=== PATIENT | male | born 1965 | race American Indian/Alaskan Native ===

== ENCOUNTER 2019-07-25 11:46 | Emergency (ER) | payer MEDICARE, OTHER ==
[2019-07-25 12:42] LABS: Basophils # (Auto) 0.1 K/mm3 (0.0-0.1); Basophils % (Auto) 0.7 % (0.0-1.8); Eosinophils # (Auto) 0.3 K/mm3 (0.0-0.4); Eosinophils % (Auto) 3.7 % (0.0-4.3); Hematocrit 31.3 % (35.5-45.6); Hemoglobin 9.9 gm/dl (11.8-15.2); Lymphocytes % (Auto) 28.9 % (13.4-35.0); Mean Corpuscular HGB Conc 32 % (32-34); Mean Corpuscular Volume 89 fl (84-94); Monocytes # (Auto) 0.5 K/mm3 (0.0-0.8); Monocytes % (Auto) 7.8 % (0.0-7.3); Platelet Count 172 K/mm3 (140-440); Red Blood Count 3.53 M/mm3 (3.65-5.03); Red Cell Distribution Width 15.7 % (13.2-15.2)
[2019-07-25 12:50] LABS: Albumin 3.6 g/dL (3.9-5); Calcium 8.6 mg/dL (8.4-10.2)
[2019-07-25 12:57] LABS: INR 1.02 (0.87-1.13)
--- NOTE | 2019-07-25 13:41 | Emergency Department Report ---
<MANUELDEVANTE - Last Filed: 07/25/19 13:29> ED GI Bleed HPI - General Chief complaint: GI Bleed Stated complaint: GI BLEED Time Seen by Provider: 07/25/19 13:10 Source: patient Mode of arrival: Ambulatory Limitations: No Limitations - History of Present Illness Severity scale (0 -10): 0 - Related Data Home Medications Medication Instructions Recorded Confirmed Last Taken Calcitriol [Rocaltrol] 0.25 mcg PO DAILY 09/28/14 04/10/15 04/09/15 Carvedilol Phosphate [Coreg CR] 80 mg PO QDAY 09/28/14 04/10/15 04/10/15 Cinacalcet [Sensipar] 30 mg PO QDAY 09/28/14 04/10/15 04/09/15 Hydralazine HCl [Apresoline TAB] 50 mg PO TID 09/28/14 04/10/15 04/10/15 Omeprazole [PriLOSEC] 20 mg PO BID 09/28/14 04/10/15 04/09/15 Simvastatin 20 mg PO QDAY 09/28/14 04/10/15 04/09/15 Tacrolimus [Prograf] 3 mg PO Q12H 09/28/14 04/10/15 04/09/15 3 mg predniSONE 7.5 mg PO QDAY 09/28/14 04/10/15 04/09/15 Allergies Allergy/AdvReac Type Severity Reaction Status Date / Time amlodipine besylate Allergy Severe Unknown Verified 07/25/19 11:50 [From Norvasc] fosinopril sodium Allergy Severe Unknown Verified 07/25/19 11:50 [From Monopril] ED Past Medical Hx - Past Medical History Hx Hypertension: Yes (April 1993) Hx Congestive Heart Failure: Yes (2006) Hx Pulmonary Embolism: No Hx GERD: Yes Hx Renal Disease: Yes (ERSD 1997) Hx Headaches / Migraines: Yes Hx Asthma: No Hx COPD: No Hx Tuberculosis: No Hx HIV: No Additional medical history: kidney transplant (february 2009 in [place]), colon poylps 07/2019 - Surgical History Additional Surgical History: brain surgery for benign tumor, hernia removal; hemmoroid removal; R forearm. Colonic Polypectomy 10/07/2014 - Social History Smoking Status: Never Smoker Substance Use Type: None - Medications Home Medications: Home Medications Medication Instructions Recorded Confirmed Last Taken Type Calcitriol [Rocaltrol] 0.25 mcg PO DAILY 09/28/14 04/10/15 04/09/15 History Carvedilol Phosphate [Coreg CR] 80 mg PO QDAY 09/28/14 04/10/15 04/10/15 History Cinacalcet [Sensipar] 30 mg PO QDAY 09/28/14 04/10/15 04/09/15 History Hydralazine HCl [Apresoline TAB] 50 mg PO TID 09/28/14 04/10/15 04/10/15 History Omeprazole [PriLOSEC] 20 mg PO BID 09/28/14 04/10/15 04/09/15 History Simvastatin 20 mg PO QDAY 09/28/14 04/10/15 04/09/15 History Tacrolimus [Prograf] 3 mg PO Q12H 09/28/14 04/10/15 04/09/15 History 3 mg predniSONE 7.5 mg PO QDAY 09/28/14 04/10/15 04/09/15 History ED Physical Exam - General Limitations: No Limitations General appearance: alert, in no apparent distress - Head Head exam: Present: atraumatic, normocephalic - Eye Eye exam: Present: normal appearance, PERRL, EOMI - ENT ENT exam: Present: mucous membranes moist - Neck Neck exam: Present: normal inspection, full ROM - Respiratory Respiratory exam: Present: normal lung sounds bilaterally. Absent: respiratory distress - Cardiovascular Cardiovascular Exam: Present: regular rate, normal rhythm. Absent: systolic murmur, diastolic murmur, rubs, gallop - GI/Abdominal GI/Abdominal exam: Present: soft, normal bowel sounds - Rectal Rectal exam: Present: deferred - Extremities Exam Extremities exam: Present: normal inspection, other (dialysis shunt to the right arm) - Back Exam Back exam: Present: normal inspection. Absent: CVA tenderness (R), CVA tenderness (L) - Neurological Exam Neurological exam: Present: alert, oriented X3, CN II-XII intact - Psychiatric Psychiatric exam: Present: normal affect, normal mood - Skin Skin exam: Present: warm, dry, intact, normal color. Absent: rash ED Course - Consultations Consultation #1: 07/25/19 13:41 Case was discussed with [facility] traveling sales representative was aware of the findings on examination of a hemoglobin of 9.9 and a negative occult blood that was performed by Dr. Mendez. His hemoglobin was found to have been 11.8 at [facility] this past Friday on 07/23/2019. Plan is for them to consult with the hospitalist for possible transfer for observation. Consultation #2: 07/25/19 14:09 Received a call back in regards to the transfer plan is to transfer patient to emergency town Dr. Nehal Delgado was be the accepting physician ED Medical Decision Making - Lab Data Result diagrams: 07/25/19 11:56 07/25/19 12:15 - Medical Decision Making 54-year-old -[place] male status post colonoscopy about 4 days ago with painless rectal bleeding with bowel movements and occult blood that is negative. Current hemoglobin is 9.9. Stroke with [facility] found the hemoglobin to be 11.8 on Friday. [facility] requested the that Mr. Yanez be transferred to [facility] under the care of Dr. Nehal Delgado. ED Disposition Clinical Impression: GI bleed, Anemia, Colon polyps, Anemia associated with acute blood loss Disposition: [id number]/TX-[id number] ANOTHER TYPE HLTHCARE Is pt being admited?: No Does the pt Need Aspirin: No Condition: Stable Forms: Accompanied Note <BABITA MENDEZ - Last Filed: 07/25/19 15:28> ED Review of Systems ROS: Stated complaint: GI BLEED Other details as noted in HPI ED Course Vital Signs 07/25/19 07/25/19 07/25/19 11:49 12:29 12:30 Temperature 97.6 F Pulse Rate 100 H 90 90 Pulse Rate [ Lying] Pulse Rate [ Sitting] Pulse Rate [ Standing] Respiratory 18 20 18 Rate Blood Pressure 108/70 Blood Pressure [Left] Blood Pressure [Lying] Blood Pressure [Sitting] Blood Pressure [Standing] O2 Sat by Pulse 100 Oximetry 07/25/19 07/25/19 07/25/19 12:45 13:00 13:15 Temperature Pulse Rate 84 89 85 Pulse Rate [ Lying] Pulse Rate [ Sitting] Pulse Rate [ Standing] Respiratory 21 11 L 18 Rate Blood Pressure 114/70 114/70 98/62 Blood Pressure 115/73 [Left] Blood Pressure [Lying] Blood Pressure [Sitting] Blood Pressure [Standing] O2 Sat by Pulse 97 100 100 Oximetry 07/25/19 07/25/19 07/25/19 13:46 13:49 14:00 Temperature Pulse Rate 91 H 84 Pulse Rate [ 83 Lying] Pulse Rate [ 95 H Sitting] Pulse Rate [ 89 Standing] Respiratory 19 25 H Rate Blood Pressure 91/52 87/48 Blood Pressure [Left] Blood Pressure 102/62 [Lying] Blood Pressure 91/52 [Sitting] Blood Pressure 87/48 [Standing] O2 Sat by Pulse 100 97 Oximetry 07/25/19 07/25/19 07/25/19 14:15 14:30 14:45 Temperature Pulse Rate 78 77 75 Pulse Rate [ Lying] Pulse Rate [ Sitting] Pulse Rate [ Standing] Respiratory 16 20 21 Rate Blood Pressure 109/72 107/72 106/68 Blood Pressure [Left] Blood Pressure [Lying] Blood Pressure [Sitting] Blood Pressure [Standing] O2 Sat by Pulse 99 Oximetry 07/25/19 07/25/19 15:00 15:15 Temperature Pulse Rate 77 74 Pulse Rate [ Lying] Pulse Rate [ Sitting] Pulse Rate [ Standing] Respiratory 21 22 Rate Blood Pressure 111/69 111/75 Blood Pressure [Left] Blood Pressure [Lying] Blood Pressure [Sitting] Blood Pressure [Standing] O2 Sat by Pulse 100 100 Oximetry ED Medical Decision Making - Lab Data Result diagrams: 07/25/19 11:56 07/25/19 12:15 - Medical Decision Making I have evaluated Mr. Yanez. On rectal exam no blood or stool in rectal vault. I recommended consultation with hospitalist for [facility]. He will be transferred to [facility]. Critical care attestation.: If time is entered above; I have spent that time in minutes in the direct care of this critically ill patient, excluding procedure time. ED Disposition Is pt being admited?: No Does the pt Need Aspirin: No
[2019-07-25] MEDS ORDERED: SODIUM CHLORIDE 0.9% 1000 ML 1,000 ML IV ONE (14:11)
[2019-07-25 15:24] VITALS: BP 111/75
== END 2019-07-25 15:59 | disposition other institution (70) ==
LOC: ED 11:46
DX: K62.5 Hemorrhage of anus and rectum (principal); D50.0 Iron deficiency anemia secondary to blood loss (chronic); I13.2 Hypertensive heart and chronic kidney disease with heart failure and with stage 5 chronic kidney disease, or end stage renal disease; N18.6 End stage renal disease; I50.9 Heart failure, unspecified; G43.909 Migraine, unspecified, not intractable, without status migrainosus; K21.9 Gastro-esophageal reflux disease without esophagitis; Z88.5 Allergy status to narcotic agent; Z88.8 Allergy status to other drugs, medicaments and biological substances; Z79.899 Other long term (current) drug therapy
CPT/HCPCS: 36415; 80053; 85025; 85610; 85730; 86850; 86900; 86901; 99285; J7030